=== PATIENT | female | born 1935 | race Caucasian/White ===

== ENCOUNTER 2019-06-22 22:42 | Emergency (ER) | payer OTHER ==
[~2019-06-22] VITALS: Ht 162.6 cm; Wt 77.1 kg
[2019-06-23 00:59] VITALS: BP 135/61
== END 2019-06-23 01:38 | disposition home or self-care (01) ==
LOC: ER 22:42
DX: S00.33XA Contusion of nose, initial encounter (principal); W07.XXXA Fall from chair, initial encounter; Y93.89 Activity, other specified; Y92.89 Other specified places as the place of occurrence of the external cause; Y99.8 Other external cause status